=== PATIENT | female | born 1985 | race African-American/Black ===

== ENCOUNTER 2017-06-03 10:30 | Inpatient (IN) | payer OTHER ==
[~2017-06-03] VITALS: Ht 160 cm; Wt 145.1 kg
[2017-07-09] VITALS (18 sets, daily range): BP systolic 108–155; BP diastolic 60–95
[2017-07-09] MEDS ORDERED: LR 1000ml 1,000 ML IVLG SCH (06:10)
[2017-07-09] MEDS ORDERED: DiphenhydrAMINE 50mg/ml Inj IVP PRN (06:15)
[2017-07-09] MEDS ORDERED: fentaNYL 100 mcg/2 mL IV PRN (06:15)
[2017-07-09] MEDS ORDERED: Ketorolac 30mg Inj IV PRN ×2 (06:15→19:00)
[2017-07-09] MEDS ORDERED: oxyCODONE HCL/Acetaminophen 5/325mg ORAL PRN (06:15)
[2017-07-09] MEDS ORDERED: LORazepam Inj 2mg/ml 1ml IV PRN (06:15)
[2017-07-09] MEDS ORDERED: Midazolam 2mg/2ml Inj IVP PRN (06:15)
[2017-07-09] MEDS ORDERED: Norco 5mg/325mg tab ORAL PRN ×2 (06:15→07:15)
[2017-07-09] MEDS ORDERED: Labetalol 5mg/ml 20ml vial IV PRN (06:15)
[2017-07-09] MEDS ORDERED: HYDROcodone/Acetamin 7.5/325 tab ORAL PRN ×3 (06:15→07:15)
[2017-07-09] MEDS ORDERED: Atropine Inj 1mg/10ml Syr IV PRN (06:15)
[2017-07-09] MEDS ORDERED: Ketorolac 60mg Inj IV PRN (06:15)
[2017-07-09] MEDS ORDERED: Acetaminophen (Non formulary) 100 ML IV ONE (06:15)
[2017-07-09 06:16] LABS: APPEARANCE,URINE CLEAR; BILIRUBIN, URINE NEGATIVE (NEGATIVE); COLOR,URINE YELLOW; GLUCOSE, URINE (UA) NEGATIVE (NEGATIVE); KETONES,URINE NEGATIVE (NEGATIVE); LEUKOCYTE ESTERASE ,URINE NEGATIVE (NEGATIVE); NITRITE,URINE NEGATIVE (NEGATIVE); PH,URINE 6 (4.5-8.0); PROTEIN,URINE NEGATIVE (NEGATIVE); UROBILINOGEN,URINE NORMAL MG/DL (0.0-1.0)
--- NOTE | 2017-07-09 06:18 | Anethesia Preoperative Eval ---
Anesthesia Pre-op PMH/ROS General Date of Evaluation: Jul 09, 2017 Time of Evaluation: 07:01 Anesthesiologist: Aparna ASA Score: ASA 3 Mallampati Score Class I : Soft palate, uvula, fauces, pillars visible Class II: Soft palate, uvula, fauces visible Class III: Soft palate, base of uvula visible Class IV: Only hard plate visible Mallampati Classification: Class III Surgeon: Mando Diagnosis: Back Pain Surgical Procedure: L L4-5, L5-S1, Microdiscetomy, Foraminectomy, Hemilaminotomy Anesthesia History: none Family History: no anesthesia problems Allergies: Coded Allergies: No Known Allergies (Unverified , 07/09/17) Medications: see eMAR Past Medical History Pulmonary: Reports: asthma Gastrointestinal/Genitourinary: Reports: GERD Neurologic/Psychiatric: Reports: depression/anxiety Other: obesity - Morbid BMI 59 PSxH Narrative: Hysteroscopy, TL Anesthesia Pre-op Phys. Exam Physician Exam Vital Signs Date Time Temp Pulse Resp B/P (MAP) Pulse Ox O2 Delivery O2 Flow Rate FiO2 07/09/17 06:35 98.0 88 18 114/74 98 Room Air Constitutional: NAD Neurologic: CN 2-12 intact Cardiovascular: RRR Respiratory: CTA Gastrointestinal: S/NT/ND Airway Exam Mallampati Score: Class III MO: full ROM: limited Teeth: intact Anesthesia Pre-op A/P Risk Assessment & Plan Assessment: ASA 3 Plan: GA, BIS, GlideScope Status Change Before Surgery: No Pre-Antibiotics Dru Grams Ancef IV Given Within 1 Hr of Incision: Yes Time Given: 07:16 Alton Braun MD Jul 09, 2017 06:18
[2017-07-09] MEDS ORDERED: Thrombin 5000 units TOPIC ONE ×2 (06:22→07:58)
[2017-07-09] MEDS ORDERED: Vancomycin 1gm inj IVPB ONE ×2 (06:22→09:21)
[2017-07-09] MEDS ORDERED: Bacitracin 50000 Units Vial ONE (06:23)
[2017-07-09] MEDS ORDERED: Ropivacaine 5mg/ml Vial 30ml INJ ONE (06:23)
[2017-07-09] MEDS ORDERED: ceFAZolin sod 2 GM in D5W 110 ML IVPB ONE (07:00)
[2017-07-09] MEDS ORDERED: Zemuron 50mg/5ml Inj IV ONE (07:00)
[2017-07-09] MEDS ORDERED: NS Irrig 1000ml ONE (07:00)
[2017-07-09] MEDS ORDERED: Lidocaine 1% MPF 10mg/ml 5ml ONE (07:00)
[2017-07-09] MEDS ORDERED: Glycopyrrolate 0.2mg/ml 1ml Vial ONE (07:00)
[2017-07-09] MEDS ORDERED: Dexamethasone 4mg/ml vial ONE (07:00)
[2017-07-09] MEDS ORDERED: LR 1000ml ONE (07:00)
[2017-07-09] MEDS ORDERED: Propofol 1,000mg/ 100ml btl IV ONE (07:00)
[2017-07-09] MEDS ORDERED: Neostigmine 1mg/ml 10ml Inj ONE (07:00)
[2017-07-09] MEDS ORDERED: fentaNYL 100 mcg/2 mL IV ONE (07:00)
[2017-07-09] MEDS ORDERED: Sterile Water Irrig 1000ml IRRIG ONE (07:00)
[2017-07-09 07:02] LABS: EOSINOPHILS % (AUTO) 1.7 % (0.0-3.0); HEMATOCRIT 41.1 % (37.0-47.0); MEAN CORPUSCULAR VOLUME 82 FL (80-99); MONOCYTES % (AUTO) 6.5 % (1.0-10.0); NEUTROPHILS % (AUTO) 54.8 % (45.0-75.0); PLATELET COUNT 447 K/UL (150-450); RED BLOOD COUNT 4.99 M/UL (4.20-5.40); RED CELL DISTRIBUTION WIDTH 13.5 % (11.6-14.8); WHITE BLOOD COUNT 14.5 K/UL (4.8-10.8)
[2017-07-09] MEDS ORDERED: LIORESAL20 MG ORAL (07:09)
[2017-07-09] MEDS ORDERED: NORCO 5-325 TA1 EAC1 ORAL (07:09)
--- NOTE | 2017-07-09 07:10 | Pre-Procedure Note/Attestation ---
Pre-Procedure Note/Attestation Complete Prior to Procedure Planned Procedure: left Procedure Narrative: Left sided L45 and L5s1 microdiscectomy hemilaminotomy foraminotomy Indications for Procedure Pre-Operative Diagnosis: L45 and 5S1 herniation Attestation I attest that I discussed the nature of the procedure; its benefits; risks and complications; and alternatives (and the risks and benefits of such alternatives ), prior to the procedure, with the patient (or the patient's legal sales representative health insurance). I attest that, if there was a reasonable possibility of needing a blood transfusion, the patient (or the patient's legal sales representative health insurance) was given the [facility] standardized written summary, pursuant to the Dayne Sanya Blood Safety Act ([place] Health and Safety Code # 1645, as amended). I attest that I re-evaluated the patient just prior to the surgery and that there has been no change in the patient's H&P, except as documented below: SHELTON WRIGHT Jul 09, 2017 07:10
--- NOTE | 2017-07-09 07:11 | Brief Operative Note ---
Immediate Post Operative Note Operative Note Chief Complaint: left leg and back pain Pre-op Diagnosis: L45 and 5S1 herniation Procedure: Left sided L45 and L5s1 microdiscectomy hemilaminotomy foraminotomy Post-op Diagnosis: same as pre-op Findings: consistent w/pre-op dx studies Surgeon: Mando Filtration Plant Operator: Claudia Anesthesiologist: hoang Anesthesia: general Specimen: none Complications: none Condition: stable Estimated Blood Loss: minimal Drains: none Implant(s) used?: SHELTON Chan Jul 09, 2017 07:11
[2017-07-09] MEDS ORDERED: Naloxone 0.4mg/ml Inj IVP PRN (07:15)
[2017-07-09] MEDS ORDERED: HYDROmorphone 1mg/ml Carpuject SUBQ PRN (07:15)
[2017-07-09] MEDS ORDERED: Milk of Magnesia 30ml Ud ORAL PRN (07:15)
[2017-07-09] MEDS ORDERED: Chloraseptic Spray 20mL Bottle ORAL PRN (07:15)
[2017-07-09] MEDS ORDERED: HYDROmorphone 1mg/ml Carpuject IVP PRN (07:15)
--- NOTE | 2017-07-09 08:06 | Immediate Post-Op Evaluation ---
Immediate Post-Op Evalulation Immediate Post-Op Evalulation Procedure: L L4-5, L5-S1, Microdiscetomy, Foraminectomy, Hemilaminotomy Date of Evaluation: Jul 09, 2017 Time of Evaluation: 10:10 IV Fluids: 1300 LR Blood Products: 0 Estimated Blood Loss: 25 Urinary Output: 0 Blood Pressure Systolic: 154 Blood Pressure Diastolic: 95 Pulse Rate: 96 Respiratory Rate: 16 O2 Sat by Pulse Oximetry: 100 Temperature (Fahrenheit): 100.5 Pain Score (1-10): 3 Nausea: No Vomiting: No Complications 0 Patient Status: awake, reacts, patent, extubated, none Hydration Status: adequate Dru Grams Ancef IV Given Within 1 Hr of Incision: Yes Time Given: 07:16 Alton Braun MD Jul 09, 2017 08:06
[2017-07-09] MEDS: Hydromorphone 0.5mg/0.5ml inj IVP PRN ×3 (10:40→11:29)
--- NOTE | 2017-07-09 12:20 | Diagnostic Imaging Report ---
Indication: Low back pain, intraoperative, left lower extremity pain Technique: Intraoperative images Comparison: none Findings: Intraoperative images demonstrate surgical tool projected posterior to the L5 vertebral body, subsequent surgical tools projected at what is presumably L4-5 and L5-S1 Impression: Intraoperative imaging, as described
--- NOTE | 2017-07-09 12:33 | Consultation ---
History of Present Illness General Date patient seen: Jul 09, 2017 Time patient seen: 12:00 Chief Complaint: intractable lower back and leg pain w/ radiculopathy Referring physician: Dr. Gilmore Reason for Consultation: med mgmt Present Illness HPI 32y/o female with L4-5 and L5-S1 disc herniation who presents s/p Left sided L45 and L5s1 microdiscectomy hemilaminotomy foraminotomy earlier today. No periop or postop complications. Postop pain appears well controlled. Denies f/c , n/v, d/c, chest pain, SOB Allergies: Coded Allergies: No Known Allergies (Unverified , 07/09/17) Medication History Scheduled Baclofen (Baclofen), 20 MG ORAL THREE TIMES A DAY, (Reported) Scheduled PRN Hydrocodone Bit/Acetaminophen 5-325* ([place] 5-325 Tablet*), 1 TAB ORAL Q4H PRN for For Pain, (Reported) Patient History History Provided By: Patient, Medical Record, PMD Healthcare decision maker campos ross - sister Resuscitation status Full Code Advanced Directive on File Past Medical/Surgical History Past Medical/Surgical History: (1) HNP (herniated nucleus pulposus), lumbar Family History Family History: (1) No significant family history Social History Social History: (1) No significant social history Review of Systems Constitutional: Reports: no symptoms Eye: Reports: no symptoms ENT: Reports: no symptoms Respiratory: Reports: no symptoms Cardiovascular: Reports: no symptoms Gastrointestinal: Reports: no symptoms Genitourinary: Reports: no symptoms Musculoskeletal: Reports: back pain, joint pain Skin: Reports: no symptoms Psychiatric: Reports: no symptoms Neurological: Reports: no symptoms Endocrine: Reports: no symptoms Hematologic/Lymphatic: Reports: no symptoms Physical Exam Physical Exam Narrative General: alert, cooperative, no distress, appears stated age Head: normocephalic, without obvious abnormality, atraumatic Eyes: conjunctivae/corneas clear. PERRL, EOM's intact Throat: lips, mucosa, and tongue normal. MMM Neck: supple, symmetrical, trachea midline, and no JVD Lungs: clear to auscultation bilaterally Heart: regular rate and rhythm, S1, S2 normal, no murmur, click, rub or gallop Abdomen: soft, non-tender, non-distended, bowel sounds normal; no masses or organomegaly Extremities: extremities normal, atraumatic, no cyanosis or edema Pulses: 2+ and symmetric Skin: skin color, texture, turgor normal; dressing c/d/i Neurologic: grossly normal, no focal deficits Last 24 Hour Vital Signs Date Time Temp Pulse Resp B/P (MAP) Pulse Ox O2 Delivery O2 Flow Rate FiO2 07/09/17 11:45 98.4 67 18 129/75 99 Nasal Cannula 3.0 07/09/17 11:40 98.4 75 18 111/72 99 Nasal Cannula 3.0 07/09/17 11:35 64 18 108/63 99 Nasal Cannula 3.0 07/09/17 11:29 64 18 115/69 99 Nasal Cannula 3.0 07/09/17 11:19 100.5 07/09/17 11:19 100.5 07/09/17 11:18 72 18 142/83 99 Nasal Cannula 3.0 07/09/17 11:10 66 18 133/77 99 Nasal Cannula 3.0 07/09/17 11:03 66 18 133/77 99 Nasal Cannula 3.0 07/09/17 10:48 66 18 134/81 99 Nasal Cannula 3.0 07/09/17 10:40 67 18 136/81 99 Nasal Cannula 3.0 07/09/17 10:20 62 18 130/70 98 Nasal Cannula 3.0 07/09/17 10:05 72 18 140/79 98 Simple Mask 8.0 07/09/17 10:05 86 18 155/87 98 Simple Mask 8.0 07/09/17 10:02 96 16 100 07/09/17 09:59 100.5 93 18 154/95 98 Simple Mask 8.0 07/09/17 06:35 98.0 88 18 114/74 98 Room Air Intake and Output 07/08/17 07/09/17 19:00 07:00 # Voids 1 Laboratory Tests Test 07/09/17 05:45 07/09/17 06:20 Urine Color Yellow Urine Appearance Clear Urine pH 6 (4.5-8.0) Urine Specific [place] 1.020 (1.005-1.035) Urine Protein Negative (NEGATIVE) Urine Glucose (UA) Negative (NEGATIVE) Urine Ketones Negative (NEGATIVE) Urine Occult Blood 2+ (NEGATIVE) H Urine Nitrite Negative (NEGATIVE) Urine Bilirubin Negative (NEGATIVE) Urine Urobilinogen Normal MG/DL (0.0-1.0) Urine Leukocyte Esterase Negative (NEGATIVE) Urine RBC 2-4 /HPF (0 - 2) H Urine WBC 0-2 /HPF (0 - 2) Urine Squamous Epithelial Cells Few /LPF (NONE/OCC) Urine Bacteria None /HPF (NONE) Urine HCG, Qualitative Negative White Blood Count 14.5 K/UL (4.8-10.8) H Red Blood Count 4.99 M/UL (4.20-5.40) Hemoglobin 13.0 G/DL (12.0-16.0) Hematocrit 41.1 % (37.0-47.0) Mean Corpuscular Volume 82 FL (80-99) Mean Corpuscular Hemoglobin 26.1 PG (27.0-31.0) L Mean Corpuscular Hemoglobin Concent 31.7 G/DL (32.0-36.0) L Red Cell Distribution Width 13.5 % (11.6-14.8) Platelet Count 447 K/UL (150-450) Mean Platelet Volume 6.3 FL (6.5-10.1) L Neutrophils (%) (Auto) 54.8 % (45.0-75.0) Lymphocytes (%) (Auto) 36.0 % (20.0-45.0) Monocytes (%) (Auto) 6.5 % (1.0-10.0) Eosinophils (%) (Auto) 1.7 % (0.0-3.0) Basophils (%) (Auto) 1.0 % (0.0-2.0) Height (Feet): 5 Height (Inches): 3.00 Weight (Pounds): 320 Medications Current Medications Medications (Trade) Dose Ordered Sig/Fabricio Route PRN Reason Start Time Stop Time Status Last Admin Dose Admin Acetaminophen (Tylenol) 650 mg Q4H PRN ORAL headache or temp>101 07/09/17 07:15 08/08/17 07:14 Acetaminophen/ Hydrocodone Bitart ([place] 5/325) 1 tab Q1H PRN ORAL Mild Pain (Pain Scale 1-3) 07/09/17 06:15 07/09/17 13:00 Acetaminophen/ Hydrocodone Bitart ([place] 5/325) 1 tab Q3H PRN ORAL pain score 1-3 07/09/17 07:15 07/16/17 07:14 UNV Acetaminophen/ Hydrocodone Bitart ([place] 7.5/325) 1 tab Q1H PRN ORAL Moderate Pain (Pain Scale 4-6) 07/09/17 06:15 07/09/17 13:00 Acetaminophen/ Hydrocodone Bitart ([place] 7.5/325) 1 tab Q3H PRN ORAL pain score 4-6 07/09/17 07:15 07/16/17 07:14 UNV Acetaminophen/ Hydrocodone Bitart ([place] 7.5/325) 2 tab Q3H PRN ORAL pain scale 7-10 07/09/17 07:15 07/16/17 07:14 UNV Al Hydroxide/Mg Hydroxide (Mylanta) 15 ml Q1H PRN ORAL gi upset 07/09/17 06:15 07/09/17 13:00 Atropine Sulfate (Atropine) 0.5 mg Q5M PRN IV HR <40 07/09/17 06:15 07/09/17 13:00 Carisoprodol (Soma) 350 mg TIDPRN PRN ORAL SPASM 07/09/17 07:15 08/08/17 07:14 Cefazolin Sodium 1 gm/Dextrose 55 ml @ 110 mls/hr EVERY 8 HOURS IV 07/09/17 14:00 07/10/17 06:29 UNV Cetylpyridinium Chloride (Cepacol) 1 lozg EVERY 2 HOURS PRN SHARIFA To Patient Comfort 07/09/17 07:15 08/08/17 07:14 UNV Dexamethasone Sodium Phosphate (Decadron 4mg/ml vial) 4 mg Q6HR IVP 07/09/17 12:00 07/10/17 06:01 UNV Diphenhydramine HCl (Benadryl) 25 mg Q15M PRN IVP Itching 07/09/17 06:15 07/09/17 13:00 Docusate Sodium (Colace) 100 mg TWICE A DAY ORAL 07/09/17 09:00 08/08/17 08:59 UNV Fentanyl Citrate (Sublimaze 100 mcg/2 mL) 25 mcg Q10M PRN IV Moderate Pain (Pain Scale 4-6) 07/09/17 06:15 07/09/17 13:00 Hydralazine HCl (Apresoline) 5 mg Q30M PRN IV SBP>160 / DBP>90 07/09/17 06:15 07/09/17 13:00 Hydromorphone HCl (Dilaudid) 0.5 mg Q15M PRN IVP Severe Pain (Pain Scale 7-10) 07/09/17 06:15 07/09/17 13:00 07/09/17 11:29 Hydromorphone HCl (Dilaudid) 1 mg Q2H PRN IVP Breakthrough Pain 07/09/17 07:15 07/16/17 07:14 UNV Hydromorphone HCl (Dilaudid) 1 mg Q4H PRN SUBQ Mild Pain (Pain Scale 1-3) 07/09/17 07:15 07/16/17 07:14 UNV Hydromorphone HCl (Dilaudid) 2 mg Q3H PRN SUBQ Severe Pain (Pain Scale 7-10) 07/09/17 07:15 07/16/17 07:14 UNV Hydromorphone HCl (Dilaudid) 2 mg Q4H PRN SUBQ Moderate Pain (Pain Scale 4-6) 07/09/17 07:15 07/16/17 07:14 UNV Labetalol HCl (Normodyne) 5 mg Q10M PRN IV SBP>160 / DBP>90 07/09/17 06:15 07/09/17 13:00 Lorazepam (Ativan 2mg/ml 1ml) 1 mg Q15M PRN IV For Anxiety 07/09/17 06:15 07/09/17 13:00 Magnesium Hydroxide (Mom) 30 ml QIDPRN PRN ORAL Constipation 07/09/17 07:15 08/08/17 07:14 UNV Midazolam HCl (Versed 2mg/2ml vial) 1 mg Q15M PRN IVP For Anxiety 07/09/17 06:15 07/09/17 13:00 Naloxone HCl (Narcan) 0.1 mg PRN PRN IVP RR<12/min, pt unarousable 07/09/17 07:15 08/08/17 07:14 UNV Ondansetron HCl (Zofran) 4 mg Q6H PRN IVP Nausea & Vomiting 07/09/17 07:15 08/08/17 07:14 UNV Oxycodone/ Acetaminophen (Percocet 5-325) 1 tab Q1H PRN ORAL Severe Pain (Pain Scale 7-10) 07/09/17 06:15 07/09/17 13:00 Phenol/Menthol (Chloraseptic) 1 spray Q3H PRN ORAL To Patient Comfort 07/09/17 07:15 08/08/17 07:14 UNV Prochlorperazine (Compazine) 10 mg Q6H PRN IVP Nausea & Vomiting 07/09/17 07:15 08/08/17 07:14 UNV Sodium Chloride 1,000 ml @ 100 mls/hr Q10H IV 07/09/17 13:30 08/08/17 13:29 Temazepam (Restoril) 15 mg HSPRN PRN ORAL Insomnia 07/09/17 07:15 07/16/17 07:14 Assessment/Plan Problem List: (1) HNP (herniated nucleus pulposus), lumbar ICD Codes: M51.26 - Other intervertebral disc displacement, lumbar region SNOMED: 739672051 (2) Lumbar radiculopathy ICD Codes: M54.16 - Radiculopathy, lumbar region SNOMED: 189503714 Status: stable Assessment/Plan Appreciate surgery rec's s/p Left sided L45 and L5s1 microdiscectomy hemilaminotomy foraminotomy on Post operative recommendations include: - encourage mobilization/ambulation - encourage incentive spirometry to optimize pulmonary hygiene - DVT/GI prophylaxis as appropriate - PT/OT - pain control, supportive care, bowel regimen - DC planning D/w pt/family, RN, SW/CM, surgery regarding mgmt and dispo Javier Terrell M.D. Jul 09, 2017 12:33
[2017-07-09] MEDS: Dexamethasone 4mg/ml vial IVP SCH ×2 (13:38→20:32)
[2017-07-09] MEDS: NS w/KCl 20mEq 1,000 ML IV SCH ×2 (15:36→23:30)
[2017-07-09] MEDS: ceFAZolin sod 1 GM in D5W 55 ML IV SCH ×2 (15:36→23:05)
[2017-07-09] MEDS: Docusate 100mg cap ORAL SCH (18:00)
[2017-07-09] MEDS ORDERED: Ketorolac 30mg Inj IV ONE (19:15)
[2017-07-10] VITALS: BP 119/58
[2017-07-10] MEDS: Dexamethasone 4mg/ml vial IVP SCH ×2 (00:38→06:19)
[2017-07-10 04:00] VITALS: BP 132/60
[2017-07-10] MEDS: NS w/KCl 20mEq 1,000 ML IV SCH ×2 (06:04→19:30)
[2017-07-10] MEDS: ceFAZolin sod 1 GM in D5W 55 ML IV SCH (06:19)
[2017-07-10 08:00] VITALS: BP 124/56
[2017-07-10] MEDS: Docusate 100mg cap ORAL SCH ×2 (08:51→18:25)
--- NOTE | 2017-07-10 09:03 | 48 Hour Post Anesthesia Eval ---
Post Anesthesia Evaluation Procedure: L L4-5, L5-S1, Microdiscetomy, Foraminectomy, Hemilaminotomy Date of Evaluation: Jul 10, 2017 Time of Evaluation: 06:55 Blood Pressure Systolic: 132 0: 60 Pulse Rate: 67 Respiratory Rate: 19 Temperature (Fahrenheit): 98.3 O2 Sat by Pulse Oximetry: 95 Airway: patent Nausea: No Vomiting: No Pain Intensity: 2 Hydration Status: adequate Cardiopulmonary Status: at baseline Mental Status/LOC: patient returned to baseline Post-Anesthesia Complications: 0 Follow-up care needed: N/A - further care as per primary team NIVIA SANCHEZ M.D. Jul 10, 2017 09:03
[2017-07-10 12:00] VITALS: BP 134/71
[2017-07-10 16:00] VITALS: BP 134/61
[2017-07-10 20:15] VITALS: BP 128/65
[2017-07-11 00:58] VITALS: BP 131/73
--- NOTE | 2017-07-11 01:45 | Operative Note - Dictated ---
DATE OF OPERATION: 07/09/2017 SURGEON: Beny Gilmore MD, Orthopaedic Spine Surgeon WET MIX OPERATOR SURGEON: SHON Coles ANESTHESIA: General endotracheal anesthesia. PREOPERATIVE DIAGNOSES: 1. Intractable back pain. 2. Intractable leg pain. 3. Worsening radiculopathy. 4. Weakness. 5. Herniated nucleus pulposus, L4-L5 and L5-S1. 6. Neural foraminal stenosis, L4-L5 and L5-S1. POSTOPERATIVE DIAGNOSES: 1. Intractable back pain. 2. Intractable leg pain. 3. Worsening radiculopathy. 4. Weakness. 5. Herniated nucleus pulposus, L4-L5 and L5-S1. 6. Neural foraminal stenosis, L4-L5 and L5-S1. PROCEDURES PERFORMED: 1. Left-sided L4-L5 and L5-S1 microdiscectomy. 2. L4-L5 and L5-S1 hemilaminotomy, foraminotomy and medial facetectomy. 3. L4-L5 and L5-S1 neural foraminotomy through a transpedicular intraforaminal approach. 4. Use of intraoperative microscope. 5. Supervision and interpretation of intraoperative fluoroscopy. 6. Supervision and interpretation of somatosensory-evoked potential and free running EMG monitoring. 7. Modifier 22, obesity, increased difficulty with regard to the exposure and depth. EBL: Less than 100 mL. COMPLICATIONS: None. INDICATIONS FOR THE PROCEDURE: Patty presents for intractable back pain and radiculopathy. The patient tried and failed a prolonged course of conservative management, including but not limited to chiropractic therapy, physical therapy, nonsteroidal anti-inflammatory drugs, medication, ice packs as well as epidural injection. Despite these therapies, the patient still developed recalcitrant pain and elected for definitive management in the form of Left-sided L4-L5 and L5-S1 microdiscectomy; L4-L5 and L5-S1 hemilaminotomy, foraminotomy, and medial facetectomy; L4-L5 and L5-S1 neural foraminotomy. We had a long discussion with him regarding definitive surgical treatment options. The patient's MRI demonstrated herniated nucleus pulposus, L4-L5 and L5-S1, and neural foraminal stenosis, L4-L5 and L5-S1 and as a result, I felt he would benefit from the discectomy as well as neural foraminotomy at this level. We had a long discussion with the patient regarding the risks, alternatives, and benefits of surgery. Our description of the risks included a discussion in person as well as a signed consent which detailed all pertinent risks and the procedure itself. Briefly, our discussion included but was not limited to infection, bleeding, pseudarthrosis, spinal cord injury, neurovascular injury, dural tear, CSF leak, neuropathy, paralysis, permanent weakness/drop foot, paresthesias blindness, palsy and weakness. The patient understood there may be a need for revision surgery or additional procedures. Approach related complications including dysphonia, dysphagia, blindness, permanent vocal cord and neural injury, hematoma, swallowing and breathing difficulty. Medical complications including liver, kidney, shock, and cardiopulmonary failure. Anesthesia complications including , swelling. Damage to the musculature, larynx (voice injury or loss),esophagus (throat), trachea, blood vessels and muscles (muscular sprain) and lungs (pneumothorax) during this surgical procedure. Injury to deeper structures may be temporary or permanent. The patient understood these and elected to proceed. A written and verbal consent was given. We discussed the pros and cons of all the alternatives. We discussed the uncertainties associated with the decision. Afterwards I assessed the patients understanding and explored their preferences. All questions were answered and no guarantees were given. Medical clearance was obtained prior to surgery. OPERATIVE FINDINGS: A broad-based disc herniation at L4-L5 and L5-S1, which encroached on the thecal sac and neural foraminal elements therein. This disc was acute in nature and not calcified. It was mobile and free floating and resected easily. There was also neural foraminal stenosis at L4-L5 and L5-S1. DESCRIPTION OF PROCEDURE: Under the benefit of general endotracheal anesthesia and with the assistance of the entire operative team, the patient was moved from the [facility] onto the operative table in the prone position on a Julian frame. The head was secured and positioned appropriately. Bilateral arms were secured with Gel pads and foam and all bony prominences were padded. The bilateral lower extremity SCD and BRENDA hose were placed for DVT prophylaxis. A surgical timeout was called which corroborated our planned procedure. Preoperative Antibiotics were administered within 30 minutes of the incision for prophylaxis. Decadron was given for preoperative steroids. Using lateral radiography, the operative levels were delineated. An incision was marked based on our interpretation of lateral radiography and afterwards the body was prepped and draped in the usual sterile manner. The family was notified that we were ready to commence surgery and were called in the waiting room hourly for updates. An incision was based on our lateral fluoroscopic image to center the incision at the L5-S1 interspace. The wound was prepped and draped in the usual sterile fashion. Using a scalpel a midline incision was taken down through the skin and subcutaneous tissues until the overlying hemilamina of L4-L5 and L5-S1 were visualized. Next, using meticulous hemostasis, hemilaminotomies were dissected and retractors were placed. Using a Tap[employer]ense dental we confirmed placement at the L4-L5 and L5-S1 interspace. We next turned our attention to our decompression. A standard hemilaminotomy foraminotomy medial facetectomy was performed at each level in standard fashion using a Midas-Matt type AM8 drill bit, straight and angled curettage, and [place] 4 rongeurs until the lateral thecal sac margin and traversing nerve root was visualized. All remainders of the ligamentum flavum and lateral bony margins were resected in total with angled curettage and [place] 4 rongeurs until the lateral thecal sac margin and traversing nerve root was visualized and decompressed. We next turned our attention toward our L4-L5 and L5-S1 microdiscectomy on the left side. A [place] 4 was used to gently mobilize the thecal sac medially and this was held retracted with a bayonetted nerve root retractor. It was at this point that we noted a large broad-based disc protrusion with encroachment dorsally on the thecal sac neural foraminal contents. A bayonet and nerve root retractor was then placed carefully to retract the thecal sac and a discectomy was performed using a combination of a long handled 15 blade scalpel, downgoing and straight pituitaries and downgoing curettage. Afterward the disc space was irrigated twice with 20 mL of antibiotic-impregnated saline. All loose and free-floating disc fragments were carefully resected with a narrow pituitary. Having been satisfied with our decompression after our discectomy of all neural elements we next turned our attention to our neural foraminoplasty/foraminotomy. This was performed with kerrison rongeurs and pituitaries re-creation of the neural foraminal arch at L4-L5 and L5-S1. Afterwards hemostasis was obtained with 60 mL of antibiotic-impregnated saline followed by FloSeal and Gelfoam. After sponge and needle count were found to be correct, next we turned our attention to closure. Closure consisted of 1-0 Vicryl in standard interrupted fashion. Zosyn was placed deep to the fascia and superficial to the fascia for Antibiotic prophylaxis. Skin closure was performed with 2-0 Vicryl in interrupted fashion followed by a running Monocryl for the skin. Final dressings consisted of Dermabond for the superficial skin, Telfa and Tegaderm. The patient tolerated the procedure well. The patient was extubated after the conclusion of surgery without incident. We discussed the findings of the surgery with the family upon completion of the case. At this point the patient will be transferred to the spine floor for further observation. Beny Gilmore M.D. DR: KIA JOB#: [id number] CC: LARY
[2017-07-11 04:46] VITALS: BP 121/64
[2017-07-11] MEDS: NS w/KCl 20mEq 1,000 ML IV SCH (05:37)
[2017-07-11 08:00] VITALS: BP 135/76
[2017-07-11] MEDS: Docusate 100mg cap ORAL SCH (10:22)
--- NOTE | 2017-07-11 10:45 | Procedure Note ---
SURGEON: Beny Gilmore M.D. DATE OF ADMISSION: 07/09/2017 DATE OF DISCHARGE: 07/11/2017 PROCEDURE PERFORMED DURING ADMISSION: 1. Microdiscectomy, left-sided L4-L5, L5-S1. 2. Hemilaminotomy. 3. Foraminotomy. REASON FOR ADMISSION: Herniations of L4-L5, L5-S1. HOSPITAL COURSE/TREATMENT RENDERED: microdiscectomy 45,5S1 DISCHARGE PHYSICAL EXAMINATION: 1. The patient was ambulating with and without the assistance of physical therapy. 2. Prior to discharge home, incision was clean and dry with minimal swelling. 3. Follows commands. 4. Alert and oriented. 5. Sawyer discontinued, voiding. 6. Incentive spirometer at bedside. 7. IVF Hep-Locked. MOTOR: Demonstrates expected postoperative bulk and tone. Moves biceps, triceps, and deltoid musculature on command. Moves hip flexors, quadriceps, tibialis anterior, EHL, gastrocsoleus musculature on command as well. TREATMENT RENDERED: 1. Daily nursing care. 2. Physical therapy. 3. Occupational therapy. 4. Intravenous medications. 5. Oral medications. 6. Daily postoperative examinations by Spine surgery team. CONDITION OF PATIENT ON DISCHARGE: The condition on discharge is stable for discharge to home. DISCHARGE INSTRUCTIONS: Our specific instructions relating to physical activity, medications, diet, and follow-up care are detailed in our standard operative folder and were given to this patient prior to surgery. We will however summarize these briefly as stated below. Regarding physical activity, we would like the patient to limit their flexion, extension, and rotation. We also require a limitation on their bending, lifting, and twisting. All medication has been called in prior to surgery to their pharmacy of choice. They can resume their regular diet once tolerated. We would like them to shower and limit soaking the wound in a tub/Jacuzzi/the ocean for a period of one month or until the incision is completely healed. We will have them follow up in our office in three weeks' time for their regularly scheduled appointment. They understand to call our office tomorrow to schedule the time for their three-week followup appointment. The patient will notify us should they experience any increase in the severity of pain/redness/swelling/drainage from their incision. Beny Gilmore M.D. DR: Roni JOB#: [id number] CC: LARY
[2017-07-11 12:00] VITALS: BP 140/88
[2017-07-11] MEDS ORDERED: Tubing IV Secondary IV ONE (12:29)
--- NOTE | 2017-07-13 13:40 | Discharge Summary ---
Discharge Summary Hospital Course Date of Admission Jul 09, 2017 at 05:32 Date of Discharge Jul 11, 2017 at 12:30 Admitting Diagnosis Herniations of L4-L5, L5-S1. Reason for Hospitalization: elective surgery HPI Patty Dalton is a 32 year old female who was admitted on Jul 09, 2017 at 05: 32 for intractable leg and back and worsening radiculopathy due to herniations of L4-L5, L5-S1. Patient was admitted for elective surgery Consultations Javier Terrell M.D.-IM Procedures s/p 07/09/[address] Gilmore 1. Left-sided L4-L5 and L5-S1 microdiscectomy. 2. L4-L5 and L5-S1 hemilaminotomy, foraminotomy and medial facetectomy. 3. L4-L5 and L5-S1 neural foraminotomy through a transpedicular intraforaminal approach. 4. Use of intraoperative microscope. 5. Supervision and interpretation of intraoperative fluoroscopy. 6. Supervision and interpretation of somatosensory-evoked potential and free running EMG monitoring. 7. Modifier 22, obesity, increased difficulty with regard to the exposure and depth. Hospital Course s/p surgery course of recovery uneventful pain management fall precautions, PT/OT eval and treatment, ambulated initially gentle IVF, dc when tolerated diet dressing intact diet started and slowly advanced as tolerated, a/emetic prn neurovascular status checked frequently IS while in the bed GI prophylaxis Sawyer dc after surgery, voided w/out difficulties bowel regimen instituted stable for dc: neurovascular intact pain controlled tolerated diet ambulated voided freely dressings clean, intact, dry detailed dc instructions provided by surgeon fup with surgeon as advised FINAL DIAGNOSIS 1. Intractable back pain. 2. Intractable leg pain. 3. Worsening radiculopathy. 4. Weakness. 5. Herniated nucleus pulposus, L4-L5 and L5-S1. 6. Neural foraminal stenosis, L4-L5 and L5-S1. 7. s/p Microdiscectomy, left-sided L4-L5, L5-S1; Hemilaminotomy, Foraminotomy.Cervical Herniated Disc and elective surgery Discharge Medications Continued Medications: Baclofen (Baclofen) 20 Mg Tablet 20 MG ORAL THREE TIMES A DAY, TAB Hydrocodone Bit/Acetaminophen 5-325* (Enloe 5-325 Tablet*) 1 Each Tablet 1 TAB ORAL Q4H PRN for For Pain, TAB Discharge Condition Upon Discharge: stable Discharge Disposition Patient was discharged to Home (01) Discharge Diagnoses: Discharge Instructions Discharge Instructions Special Instructions I have been assigned to complete a D/C Summary on this account. I was not involved in the patient management Terese Lea NP (Vanchtein) Jul 13, 2017 13:40
== END 2017-07-11 12:30 | disposition home or self-care (01) | DRG 519 ==
LOC: SDSOVERFLO 07-09 05:32 → 3E 07-09 11:52
DX: M51.16 Intervertebral disc disorders with radiculopathy, lumbar region (principal); Z68.43 Body mass index [BMI] 50.0-59.9, adult; I10 Essential (primary) hypertension; E66.9 Obesity, unspecified; M48.061 Spinal stenosis, lumbar region without neurogenic claudication; M51.17 Intervertebral disc disorders with radiculopathy, lumbosacral region; M48.07 Spinal stenosis, lumbosacral region; F17.200 Nicotine dependence, unspecified, uncomplicated
CPT/HCPCS: 36415; 72020; 76000; 81001; 81025; 85025; 86850; 86870; 86900; 86901; 87081; 94003; 94150; J2405; J2710

== ENCOUNTER 2017-08-21 09:06 | Inpatient (IN) | payer OTHER ==
[~2017-08-21] VITALS: Ht 160 cm; Wt 145.6 kg
[2017-08-21] VITALS (13 sets, daily range): BP systolic 133–163; BP diastolic 64–104
--- NOTE | 2017-08-21 08:27 | Anethesia Preoperative Eval ---
Anesthesia Pre-op PMH/ROS General Date of Evaluation: Aug 21, 2017 Time of Evaluation: 10:30 Anesthesiologist: PORTER ASA Score: ASA 2 Mallampati Score Class I : Soft palate, uvula, fauces, pillars visible Class II: Soft palate, uvula, fauces visible Class III: Soft palate, base of uvula visible Class IV: Only hard plate visible Mallampati Classification: Class II Surgeon: Mando Diagnosis: Lumbar Radiculopathy Surgical Procedure: l4-5S1 Microdiskectomy Anesthesia History: none Family History: no anesthesia problems Allergies: Coded Allergies: GUAIFENESIN (Verified Allergy, Severe, Hives, 08/20/17) Medications: see eMAR Anesthesia Pre-op Phys. Exam Physician Exam Constitutional: NAD Neurologic: CN 2-12 intact Cardiovascular: RRR Respiratory: CTA Gastrointestinal: S/NT/ND Airway Exam Mallampati Score: Class II MO: full ROM: full Teeth: intact Anesthesia Pre-op A/P Risk Assessment & Plan Plan: GA Pre-Antibiotics Drug: Ancef Given Within 1 Hr of Incision: Yes Time Given: 10:30 Jose Raul Arzate M.D. Aug 21, 2017 08:27
[~2017-08-21 09:06] MED LIST: Acetaminophen (Non formulary) 100 ML IV ONE; Hydromorphone 0.5mg/0.5ml inj IVP PRN; Ketorolac 30mg Inj IV PRN; LIORESAL20 MG ORAL; LR 1000ml 1,000 ML IVLG SCH; Midazolam 2mg/2ml Inj IVP PRN; NORCO 5-325 TA1 EAC1 ORAL; Vancomycin 1 GM in D5W 275 ML IVPB ONE
[2017-08-21] MEDS ORDERED: Thrombin 5000 units TOPIC ONE (09:22)
[2017-08-21] MEDS ORDERED: Surgicel 4in x 8in TOPIC ONE (09:22)
[2017-08-21] MEDS ORDERED: Ropivacaine 5mg/ml Vial 30ml INJ ONE (09:22)
[2017-08-21] MEDS ORDERED: Vancomycin 1gm inj IVPB ONE ×2 (09:22→13:34)
[2017-08-21] MEDS ORDERED: Bacitracin 50000 Units Vial ONE ×2 (09:23→11:27)
--- NOTE | 2017-08-21 09:48 | History and Physical ---
History of Present Illness General Date patient seen: Aug 21, 2017 Time patient seen: 09:20 Reason for Hospitalization: surgery Present Illness HPI Preop H&P 32y/o female with h/o intractable lower back pain with lumbar radiculopathy 2/2 L4-5 and L5-S1 herniation s/p L45 and L5s1 microdiscectomy hemilaminotomy foraminotomy on 07/09/17 who presents w/ recurrent disc herniation and concern for wound infection. Pt states after last surgery on Jun 2017 she had worsening pain w/ swelling in lower back. She was admitted at OSH. She had fluid from back drained and was seen by ID. She had PICC placed and was on Vanco and Zosyn. Pt states Zosyn was changed to Meropenem by ID doctor recently. She had improvement in symptoms but still w/ lower back pain radiating down L leg. Pt denies h/o CAD/CT/HTN/DM2/CKD/COPD. Activity limited by back and leg pain. Allergies: Coded Allergies: GUAIFENESIN (Verified Allergy, Severe, Hives, 08/20/17) Medication History Scheduled Baclofen (Baclofen), 20 MG ORAL THREE TIMES A DAY, (Reported) Scheduled PRN Hydrocodone Bit/Acetaminophen 5-325* (Magnolia 5-325 Tablet*), 1 TAB ORAL Q4H PRN for For Pain, (Reported) Patient History History Provided By: Patient, Family Member, Medical Record, PMD Healthcare decision maker Resuscitation status Advanced Directive on File Past Medical/Surgical History Past Medical/Surgical History: (1) Obesity (2) Lumbar radiculopathy (3) HNP (herniated nucleus pulposus), lumbar Family History Family History: No significant family history Social History Social History: (1) smokes 2 cigarettes per day Review of Systems Eye: Reports: no symptoms ENT: Reports: no symptoms Respiratory: Reports: no symptoms Cardiovascular: Reports: no symptoms Gastrointestinal: Reports: no symptoms Musculoskeletal: Reports: back pain, muscle pain Skin: Reports: no symptoms Psychiatric: Reports: no symptoms Neurological: Reports: no symptoms Endocrine: Reports: no symptoms Hematologic/Lymphatic: Reports: no symptoms All Other Systems: negative except mentioned in HPI Physical Exam Physical Exam Narrative General: alert, cooperative, no distress, appears stated age, obese Head: normocephalic, without obvious abnormality, atraumatic Eyes: conjunctivae/corneas clear. PERRL, EOM's intact Throat: lips, mucosa, and tongue normal. MMM Neck: supple, symmetrical, trachea midline, and no JVD Lungs: clear to auscultation bilaterally Heart: regular rate and rhythm, S1, S2 normal, no murmur, click, rub or gallop Abdomen: soft, non-tender, non-distended, bowel sounds normal Extremities: extremities normal, atraumatic, no cyanosis or edema Pulses: 2+ and symmetric Skin: skin color, texture, turgor normal; no rashes or lesions Neurologic: grossly normal, no focal deficits Medications Current Medications Medications (Trade) Dose Ordered Sig/Fabricio Route PRN Reason Start Time Stop Time Status Last Admin Dose Admin Hydralazine HCl (Apresoline) 5 mg Q30M PRN IV SBP>160 OR___/DBP>90 OR___ 08/21/17 08:30 UNV Hydromorphone HCl (Dilaudid) 0.5 mg Q15M PRN IVP Severe Pain (Pain Scale 7-10) 08/21/17 08:30 UNV Ketorolac Tromethamine (Toradol 30mg) 30 mg Q1H PRN IV Severe Breakthru Pain (>7) 08/21/17 08:30 UNV Lactated Ringer's 1,000 ml @ 10 mls/hr Q24H IVLG 08/21/17 08:27 08/21/17 10:26 UNV Midazolam HCl (Versed 2mg/2ml vial) 1 mg Q15M PRN IVP For Anxiety 08/21/17 08:30 UNV Ondansetron HCl (Zofran) 4 mg Q1H PRN IVP Nausea & Vomiting 08/21/17 08:30 UNV Objective Narrative EKG NSR CXR normal Assessment/Plan Problem List: (1) HNP (herniated nucleus pulposus), lumbar ICD Codes: M51.26 - Other intervertebral disc displacement, lumbar region SNOMED: 272526682 (2) Lumbar radiculopathy ICD Codes: M54.16 - Radiculopathy, lumbar region SNOMED: 363432268 (3) Concern for wound infection, possible abscess (4) Obesity ICD Codes: E66.9 - Obesity, unspecified SNOMED: 574737114, 289213408 Status: stable Assessment/Plan If patient is required to have surgery, based on the patient's medical history, and other available ancillary data, the patient is a LOW/INTERMEDIATE risk for an INTERMEDIATE risk procedure. Per the most recent ACC/AHA guidelines, the patient does not need any further cardiopulmonary testing prior to the procedure and there do not appear to be any clear medical contraindications to proceeding with the proposed procedure. Javier Terrell M.D. Aug 21, 2017 09:48
[2017-08-21] MEDS ORDERED: MS CONTIN30 MG ORAL (10:19)
[2017-08-21] MEDS ORDERED: VANCOMYCIN1 GM/2502 IVPB (10:20)
--- NOTE | 2017-08-21 10:26 | Pre-Procedure Note/Attestation ---
Pre-Procedure Note/Attestation Complete Prior to Procedure Planned Procedure: not applicable Procedure Narrative: Lumbar L45 L5S1 revision microdiscectomy exploration of wound Indications for Procedure Pre-Operative Diagnosis: Radiculopathy and leg pain , superficial serous fluid Attestation I attest that I discussed the nature of the procedure; its benefits; risks and complications; and alternatives (and the risks and benefits of such alternatives ), prior to the procedure, with the patient (or the patient's legal financial service representative). I attest that, if there was a reasonable possibility of needing a blood transfusion, the patient (or the patient's legal financial service representative) was given the [facility] standardized written summary, pursuant to the Dayne Bratenahl Blood Safety Act ([place] Health and Safety Code # 1645, as amended). I attest that I re-evaluated the patient just prior to the surgery and that there has been no change in the patient's H&P, except as documented below: SHELTON WRIGHT Aug 21, 2017 10:26
--- NOTE | 2017-08-21 10:28 | Brief Operative Note ---
Immediate Post Operative Note Operative Note Chief Complaint: Leg pain and radicular symptoms Pre-op Diagnosis: Radiculopathy and leg pain , superficial serous fluid Procedure: Lumbar L45 L5S1 revision microdiscectomy exploration of wound, irrigation and debridement Post-op Diagnosis: same as pre-op Findings: consistent w/pre-op dx studies Surgeon: Mando Crusher Feeder: Claudia Anesthesia: general Specimen: none Complications: none Condition: stable Estimated Blood Loss: minimal Implant(s) used?: SHELTON Chan Aug 21, 2017 10:28
[2017-08-21] MEDS ORDERED: Norco 5mg/325mg tab ORAL PRN (10:30)
[2017-08-21] MEDS ORDERED: Morphine Sulfate 2mg/ml Inj SUBQ PRN (10:30)
[2017-08-21] MEDS ORDERED: Naloxone 0.4mg/ml Inj IVP PRN (10:30)
[2017-08-21] MEDS ORDERED: Morphine Sulfate 4mg/ml Inj SUBQ PRN ×2 (10:30)
[2017-08-21] MEDS ORDERED: Chloraseptic Spray 20mL Bottle ORAL PRN (10:30)
[2017-08-21] MEDS ORDERED: HYDROcodone/Acetamin 7.5/325 tab ORAL PRN ×2 (10:30)
[2017-08-21] MEDS ORDERED: Milk of Magnesia 30ml Ud ORAL PRN (10:30)
[2017-08-21] MEDS ORDERED: NS Irrig 4000ml IRRIG ONE (11:00)
[2017-08-21] MEDS ORDERED: Succinylcholine 20mg/ml 10ml vial ONE (11:00)
[2017-08-21] MEDS ORDERED: Glycopyrrolate 0.2mg/ml 1ml Vial ONE (11:00)
[2017-08-21] MEDS ORDERED: Zemuron 50mg/5ml Inj IV ONE (11:00)
[2017-08-21] MEDS ORDERED: Propofol 1,000mg/ 100ml btl IV ONE (11:00)
[2017-08-21] MEDS ORDERED: LR 1000ml ONE (11:00)
[2017-08-21] MEDS ORDERED: Sterile Water Irrig 1000ml IRRIG ONE (11:00)
[2017-08-21] MEDS ORDERED: Sodium Chloride 10ml vial INJ ONE (11:00)
[2017-08-21] MEDS ORDERED: Midazolam 2mg/2ml Inj ONE (11:00)
[2017-08-21] MEDS ORDERED: Ketorolac 30mg Inj ONE (11:00)
[2017-08-21] MEDS ORDERED: Neostigmine 1mg/ml 10ml Inj ONE (11:00)
[2017-08-21] MEDS ORDERED: Metoclopramide 10mg/2ml Inj ONE (11:00)
[2017-08-21] MEDS ORDERED: Dexamethasone 4mg/ml vial ONE (11:00)
[2017-08-21] MEDS ORDERED: NS Irrig 1000ml ONE (11:00)
[2017-08-21] MEDS ORDERED: fentaNYL 100 mcg/2 mL IV ONE (11:00)
[2017-08-21] MEDS ORDERED: NeoSporin Gu Irrig 1ml Amp IRRIG ONE (11:27)
[2017-08-21] MEDS ORDERED: ceFAZolin sod 1 GM in D5W 55 ML IV SCH (14:00)
[2017-08-21] MEDS ORDERED: Ketorolac 30mg Inj IV PRN (15:15)
[2017-08-21] MEDS ORDERED: Midazolam 2mg/2ml Inj IVP PRN (15:15)
[2017-08-21] MEDS ORDERED: LR 1000ml 1,000 ML IVLG SCH (15:15)
[2017-08-21] MEDS ORDERED: Hydromorphone 0.5mg/0.5ml inj IVP PRN (15:15)
--- NOTE | 2017-08-21 16:07 | 48 Hour Post Anesthesia Eval ---
Post Anesthesia Evaluation Procedure: L4-S1 microdiskectomy Date of Evaluation: Aug 23, 2017 Time of Evaluation: 09:00 Blood Pressure Systolic: 130 0: 72 Pulse Rate: 70 Respiratory Rate: 16 Temperature (Fahrenheit): 98 O2 Sat by Pulse Oximetry: 99 Airway: patent Nausea: No Vomiting: No Pain Intensity: 0 Hydration Status: adequate Mental Status/LOC: patient returned to baseline Post-Anesthesia Complications: none Follow-up care needed: ready to discharge Jose Raul Arzate M.D. Aug 21, 2017 16:07
[2017-08-21] MEDS: Dexamethasone 4mg/ml vial IVP SCH ×2 (17:42→23:49)
[2017-08-21] MEDS: NS w/KCl 20mEq 1,000 ML IV SCH (17:42)
[2017-08-21] MEDS: Docusate 100mg cap ORAL SCH (17:42)
--- NOTE | 2017-08-21 17:42 | Diagnostic Imaging Report ---
Indication: Back pain, intraoperative Technique: Intraoperative imaging Comparison: none Findings: Intraoperative imaging demonstrates a surgical tool posterior to what is presumably the L5-S1 disc Impression: Intraoperative imaging, as described
[2017-08-21] MEDS ORDERED: Vancomycin 1.5 GM/D5W 250ML IVPB ONE (18:30)
[2017-08-21 18:51] LABS: BASOPHILS % (AUTO) 0.8 % (0.0-2.0); EOSINOPHILS % (AUTO) 0.9 % (0.0-3.0); HEMATOCRIT 34.5 % (37.0-47.0); HEMOGLOBIN 11.3 G/DL (12.0-16.0); MEAN CORPUSCULAR VOLUME 80 FL (80-99); NEUTROPHILS % (AUTO) 66.3 % (45.0-75.0); PLATELET COUNT 507 K/UL (150-450); RED CELL DISTRIBUTION WIDTH 12.8 % (11.6-14.8); WHITE BLOOD COUNT 16.3 K/UL (4.8-10.8)
[2017-08-21 19:05] LABS: ALANINE AMINOTRANSFERASE 19 U/L (12-78); ALBUMIN 2.9 G/DL (3.4-5.0); ALKALINE PHOSPHATASE 92 U/L (46-116); ANION GAP 6 mmol/L (5-15); ASPARTATE AMINO TRANSFERASE 17 U/L (15-37); BILIRUBIN,DIRECT 0.1 MG/DL (0.0-0.3); BILIRUBIN,TOTAL 0.2 MG/DL (0.2-1.0); BLOOD UREA NITROGEN 12 mg/dL (7-18); CALCIUM 9.1 MG/DL (8.5-10.1); CARBON DIOXIDE 27 MMOL/L (21-32); CHLORIDE 105 MMOL/L (98-107); CREATININE 1.2 MG/DL (0.55-1.30); SODIUM 138 MMOL/L (136-145)
[2017-08-21] MEDS: Meropenem 1 GM in NS 55 ML IVPB SCH (20:47)
[2017-08-21] MEDS: Morphine Sulfate 4mg/ml Inj IVP PRN (20:48)
[2017-08-21] MEDS ORDERED: Morphine Sulfate 2mg/ml Inj IVP PRN (22:30)
[2017-08-22] MEDS: Vancomycin 1gm/D5W 275ml IVPB SCH ×6 (01:42→18:02)
--- NOTE | 2017-08-22 01:45 | Operative Note - Dictated ---
DATE OF OPERATION: 08/21/2017 SURGEON: Beny Gilmore MD, Orthopaedic Spine Surgeon OTC CLERK SURGEON: SHON Coles ANESTHESIA: General endotracheal anesthesia. PREOPERATIVE DIAGNOSES: 1. Intractable back pain. 2. Intractable leg pain. 3. Worsening radiculopathy. 4. Weakness. 5. Recurrent Herniated nucleus pulposus, L5-S1. 6. Neural foraminal stenosis, L5-S1. POSTOPERATIVE DIAGNOSES: 1. Intractable back pain. 2. Intractable leg pain. 3. Worsening radiculopathy. 4. Weakness. 5. Herniated nucleus pulposus, L5-S1. 6. Neural foraminal stenosis, L5-S1. PROCEDURES PERFORMED: 1. Left-sided L5-S1 revision microdiscectomy. 2. L5-S1 hemilaminectomy, foraminotomy and medial facetectomy. 3. Irrigation and debridement, dissection through altered and scarred anatomy 4. Use of intraoperative microscope. 5. Supervision and interpretation of intraoperative fluoroscopy. 6. Supervision and interpretation of somatosensory-evoked potential and free running EMG monitoring. EBL: Less than 100 mL. COMPLICATIONS: None. INDICATIONS FOR THE PROCEDURE: Ms. Dalton had her prior lumbar decompression performed by myself and since then, she had complete relief and resolution of her leg pain. During a period of recovery after surgery, she developed a new resurgence of left-sided leg pain and radicular symptoms in an L5 and S1 distribution which was new and distinct from her prior symptoms in terms of severity and character of the symptoms. Postoperative MRI demonstrated a subcutaneous fluid collection as well as a broad-based large recurrent disk herniation at L5-S1. We tentatively treated this with conservative measures. She has had, however, three hospital admission to [facility], where she has had recalcitrant pain and finally after recent hospital admission over this past week, we discussed our options from the standpoint of definitive management in the form of surgery. Repeat MRI again demonstrated with recurrent disk herniation at L5-S1 and she presents today for resection of the disk herniation fragment as well as exploration of her prior wound. We had a long discussion with the patient regarding the risks, alternatives, and benefits of surgery. Our description of the risks included a discussion in person as well as a signed consent which detailed all pertinent risks and the procedure itself. Briefly, our discussion included but was not limited to infection, bleeding, pseudarthrosis, spinal cord injury, neurovascular injury, dural tear, CSF leak, neuropathy, paralysis, permanent weakness/drop foot, paresthesias blindness, palsy and weakness. The patient understood there may be a need for revision surgery or additional procedures. Approach related complications including dysphonia, dysphagia, blindness, permanent vocal cord and neural injury, hematoma, swallowing and breathing difficulty. Medical complications including liver, kidney, shock, and cardiopulmonary failure. Anesthesia complications including , swelling. Damage to the musculature, larynx (voice injury or loss),esophagus (throat), trachea, blood vessels and muscles (muscular sprain) and lungs (pneumothorax) during this surgical procedure. Injury to deeper structures may be temporary or permanent. The patient understood these and elected to proceed. A written and verbal consent was given. We discussed the pros and cons of all the alternatives. We discussed the uncertainties associated with the decision. Afterwards I assessed the patients understanding and explored their preferences. All questions were answered and no guarantees were given. Medical clearance was obtained prior to surgery. OPERATIVE FINDINGS: Two free sequestered broad-based disc herniations at L5-S1 , which encroached on the thecal sac and neural foraminal elements therein. This disc was acute in nature and not calcified. It was mobile and free floating and resected easily. There was also a superfascial fluid collection of clear serous fluid in the subcutaneous tissues which did not communicate with the subfascial lamina or thecal sac. DESCRIPTION OF PROCEDURE: Under the benefit of general endotracheal anesthesia and with the assistance of the entire operative team, the patient was moved from the [facility] onto the operative table in the prone position on a Julian frame. The head was secured and positioned appropriately. Bilateral arms were secured with Gel pads and foam and all bony prominences were padded. The bilateral lower extremity SCD and BRENDA hose were placed for DVT prophylaxis. A surgical timeout was called which corroborated our planned procedure. Preoperative Antibiotics were administered within 30 minutes of the incision for prophylaxis. Decadron was given for preoperative steroids. Using lateral radiography, the operative levels were delineated. An incision was marked based on our interpretation of lateral radiography and afterwards the body was prepped and draped in the usual sterile manner. The family was notified that we were ready to commence surgery and were called in the waiting room hourly for updates. An incision was based on our lateral fluoroscopic image to center the incision at the L5-S1 interspace. The wound was prepped and draped in the usual sterile fashion. Using a scalpel a midline incision was taken down through the skin and subcutaneous tissues until the overlying hemilamina of L5-S1 were visualized. Next, using meticulous hemostasis, hemilaminotomies were dissected and retractors were placed. Using a Ervin dental we confirmed placement at the L5-S1 interspace. We next turned our attention to our decompression. After the skin incision I noted a subcutaneous and superfascial fluid collection of clear serous fluid in the subcutaneous tissues which did not communicate with the subfascial lamina or thecal sac. Cultures were obtained x 3. A standard hemilaminectomy foraminotomy medial facetectomy was performed at the left L5 lamina in standard fashion using a Midas-Matt type AM8 drill bit, straight and angled curettage, and Kerrison 4 rongeurs until the lateral thecal sac margin and traversing nerve root was visualized. All remainders of the ligamentum flavum and lateral bony margins were resected in total with angled curettage and Kerrison 4 rongeurs until the lateral thecal sac margin and traversing nerve root was visualized and decompressed. We next turned our attention toward our L5-S1 microdiscectomy on the left side. A Renton 4 was used to gently mobilize the thecal sac medially and this was held retracted with a bayonetted nerve root retractor. It was at this point that we noted a large broad-based disc protrusion with encroachment dorsally on the thecal sac neural foraminal contents. The disc was paracentral but more fragments were removed from the subarticular and lateral recess margin specifically two very large mobile sequestered fragments. A bayonet and nerve root retractor was then placed carefully to retract the thecal sac and a discectomy was performed using a combination of a long handled 15 blade scalpel, downgoing and straight pituitaries and downgoing curettage. Afterward the disc space was irrigated twice with 20 mL of antibiotic-impregnated saline. All loose and free-floating disc fragments were carefully resected with a narrow pituitary. Cultures were obtained of the deep enviornment as well x 3. Having been satisfied with our decompression after our discectomy of all neural elements we next turned our attention to our neural foraminoplasty/foraminotomy. This was performed using kerrison rongeurs and pituitaries. Afterwards hemostasis was obtained with 60 mL of antibiotic-impregnated saline followed by FloSeal and Gelfoam. After sponge and needle count were found to be correct, next we turned our attention to closure. Closure consisted of 1-0 Vicryl in standard interrupted fashion. Zosyn was placed deep to the fascia and superficial to the fascia for Antibiotic prophylaxis. Skin closure was performed with 2-0 Vicryl in interrupted fashion followed by a running Monocryl for the skin. Final dressings consisted of Dermabond for the superficial skin, Telfa and Tegaderm. The patient tolerated the procedure well. The patient was extubated after the conclusion of surgery without incident. We discussed the findings of the surgery with the family upon completion of the case. At this point the patient will be transferred to the spine floor for further observation. Beny Gilmore M.D. DR: KIA JOB#: [id number] CC: LARY
[2017-08-22] MEDS: Morphine Sulfate 4mg/ml Inj IVP PRN ×6 (02:25→21:06)
[2017-08-22] MEDS: NS w/KCl 20mEq 1,000 ML IV SCH (03:00)
[2017-08-22 04:00] VITALS: BP 139/74
[2017-08-22] MEDS: Meropenem 1 GM in NS 55 ML IVPB SCH ×3 (05:46→21:06)
[2017-08-22] MEDS: Dexamethasone 4mg/ml vial IVP SCH ×2 (05:46→13:56)
[2017-08-22 08:30] VITALS: BP 146/84
[2017-08-22] MEDS: Docusate 100mg cap ORAL SCH ×2 (09:43→18:02)
[2017-08-22 12:35] VITALS: BP 141/67
[2017-08-22 16:00] VITALS: BP 141/79
--- NOTE | 2017-08-22 17:33 | Infectious Diseases Prog Note ---
Assessment/Plan Assessment/Plan Full consult dictated: A) 1) hx of lumbar back wound infection/?abscess, + staph aureus infection in d/ w Dr. Gilmore 2) patient s/p 5 weeks vancomycin and meropenem, patient seeing outside ID MD , Dr. Johnson per patient 3) s/p spinal surgery on 08/21 - operative report noted 4) radiculopathy, back pain, weakness 5) leukocytosis noted 6) obesity P) 1) continue vancomycin and meropenem - suspect patient being treated as presumptive lumbar spine discitis/osteomyelitis 2) check records from outside hospital 3) check f/u labs and surgical culture 4) patient to f/u with prior ID MD to finish abx course, standard is at least 6-8 weeks if treating discitis 5) d/w Dr. Gilmore and Dr. Herrera and patient 6) thank you Subjective Allergies: Coded Allergies: GUAIFENESIN (Verified Allergy, Severe, Hives, 08/20/17) Objective Vital Signs Last 24 Hour Vital Signs Date Time Temp Pulse Resp B/P (MAP) Pulse Ox O2 Delivery O2 Flow Rate FiO2 08/22/17 16:00 98.5 91 18 141/79 98 Room Air 98.5 08/22/17 14:26 98.5 08/22/17 13:56 98.1 08/22/17 12:35 98.1 83 18 141/67 98 Room Air 98.1 08/22/17 09:42 97.4 08/22/17 08:30 98.4 82 20 146/84 97 Room Air 98.4 08/22/17 04:00 97.4 76 20 139/74 96 Room Air 97.4 08/21/17 23:39 98.1 84 20 133/69 97 Room Air 98.1 08/21/17 20:00 97.7 99 20 142/90 97 Room Air 97.7 Height (Feet): 5 Height (Inches): 2.99 Weight (Pounds): 321 Microbiology Date/Time Source Procedure Growth Status 08/21/17 12:35 Wound Gram Stain - Final Resulted 08/21/17 12:35 Wound Aerobic Culture - Preliminary NO GROWTH Resulted 08/21/17 12:11 Wound Gram Stain - Final Resulted 08/21/17 12:11 Wound Aerobic Culture - Preliminary NO GROWTH Resulted 08/21/17 11:50 Wound Gram Stain - Final Resulted 08/21/17 11:50 Wound Aerobic Culture - Preliminary NO GROWTH Resulted Laboratory Tests Test 08/21/17 18:30 White Blood Count 16.3 K/UL (4.8-10.8) H Red Blood Count 4.30 M/UL (4.20-5.40) Hemoglobin 11.3 G/DL (12.0-16.0) L Hematocrit 34.5 % (37.0-47.0) L Mean Corpuscular Volume 80 FL (80-99) Mean Corpuscular Hemoglobin 26.2 PG (27.0-31.0) L Mean Corpuscular Hemoglobin Concent 32.7 G/DL (32.0-36.0) Red Cell Distribution Width 12.8 % (11.6-14.8) Platelet Count 507 K/UL (150-450) H Mean Platelet Volume 6.2 FL (6.5-10.1) L Neutrophils (%) (Auto) 66.3 % (45.0-75.0) Lymphocytes (%) (Auto) 26.0 % (20.0-45.0) Monocytes (%) (Auto) 6.0 % (1.0-10.0) Eosinophils (%) (Auto) 0.9 % (0.0-3.0) Basophils (%) (Auto) 0.8 % (0.0-2.0) Sodium Level 138 MMOL/L (136-145) Potassium Level 4.0 MMOL/L (3.5-5.1) Chloride Level 105 MMOL/L (98-107) Carbon Dioxide Level 27 MMOL/L (21-32) Anion Gap 6 mmol/L (5-15) Blood Urea Nitrogen 12 mg/dL (7-18) Creatinine 1.2 MG/DL (0.55-1.30) Estimat Glomerular Filtration Rate > 60 mL/min (>60) Glucose Level 142 MG/DL (74-106) H Calcium Level 9.1 MG/DL (8.5-10.1) Total Bilirubin 0.2 MG/DL (0.2-1.0) Direct Bilirubin 0.1 MG/DL (0.0-0.3) Aspartate Amino Transf (AST/SGOT) 17 U/L (15-37) Alanine Aminotransferase (ALT/SGPT) 19 U/L (12-78) Alkaline Phosphatase 92 U/L (46-116) Total Protein 7.1 G/DL (6.4-8.2) Albumin 2.9 G/DL (3.4-5.0) L Current Medications Medications (Trade) Dose Ordered Sig/Fabricio Route PRN Reason Start Time Stop Time Status Last Admin Dose Admin Acetaminophen (Tylenol) 650 mg Q4H PRN ORAL headache or temp>101 08/21/17 10:30 09/20/17 10:29 Acetaminophen/ Hydrocodone Bitart ([place] 5/325) 1 tab Q3H PRN ORAL pain score 1-3 08/21/17 10:30 08/28/17 10:29 Acetaminophen/ Hydrocodone Bitart ([place] 7.5/325) 1 tab Q3H PRN ORAL pain score 4-6 08/21/17 10:30 08/28/17 10:29 Acetaminophen/ Hydrocodone Bitart ([place] 7.5/325) 2 tab Q3H PRN ORAL pain scale 7-10 08/21/17 10:30 08/28/17 10:29 Carisoprodol (Soma) 350 mg TIDPRN PRN ORAL MUSCLE SPASM 08/21/17 10:30 09/20/17 10:29 Cetylpyridinium Chloride (Cepacol) 1 lozg Q2H PRN SHARIFA To Patient Comfort/SORE THROAT 08/21/17 10:30 09/20/17 10:29 08/21/17 17:42 Chlorhexidine Gluconate (Phyllis-Hex 2%) 1 applic DAILY@2000 TOPIC 08/22/17 20:00 09/21/17 19:59 Docusate Sodium (Colace) 100 mg TWICE A DAY ORAL 08/21/17 18:00 09/20/17 17:59 08/22/17 09:43 Hydromorphone HCl (Dilaudid) 2 mg HSPRN PRN SUBQ IF PAIN CREATES INSOMNIA 08/21/17 10:30 08/28/17 10:29 Magnesium Hydroxide (Mom) 30 ml QIDPRN PRN ORAL Constipation 08/21/17 10:30 09/20/17 10:29 Meropenem 1 gm/ Sodium Chloride 55 ml @ 110 mls/hr Q8HR IVPB 08/21/17 20:00 08/26/17 19:59 08/22/17 13:56 Morphine Sulfate (Morphine Sulfate) 2 mg Q4H PRN IVP Mild Pain (Pain Scale 1-3) 08/21/17 22:30 08/28/17 22:29 Morphine Sulfate (Morphine Sulfate) 4 mg Q3H PRN IVP Severe Pain (Pain Scale 7-10) 08/21/17 22:30 08/28/17 22:29 08/22/17 13:56 Morphine Sulfate (Morphine Sulfate) 4 mg Q4H PRN SUBQ Moderate Pain (Pain Scale 4-6) 08/21/17 10:30 08/28/17 10:29 Naloxone HCl (Narcan) 0.1 mg PRN PRN IVP RR<12/min, pt unarousable 08/21/17 10:30 09/20/17 10:29 Ondansetron HCl (Zofran) 4 mg Q6H PRN IVP Nausea & Vomiting 08/21/17 10:30 09/20/17 10:29 Phenol/Menthol (Chloraseptic) 1 spray Q3H PRN ORAL To Patient Comfort/SORE THROAT 08/21/17 10:30 09/20/17 10:29 Prochlorperazine (Compazine) 10 mg Q6H PRN IVP Nausea & Vomiting 08/21/17 10:30 09/20/17 10:29 Temazepam (Restoril) 15 mg HSPRN PRN ORAL Insomnia 08/21/17 10:30 08/28/17 10:29 08/21/17 23:49 Vancomycin HCl (Vanco rx to dose) 1 ea DAILY PRN MISC Per rx protocol 08/21/17 16:30 09/20/17 16:29 Vancomycin HCl 1 gm/Dextrose 275 ml @ 183.708 mls/hr Q8H IVPB 08/22/17 02:00 08/27/17 01:59 08/22/17 09:43 ADELFO CALLOWAY 10, 2018 17:33
[2017-08-22 18:10] LABS: HEMATOCRIT 33.9 % (37.0-47.0); HEMOGLOBIN 11.5 G/DL (12.0-16.0); MEAN CORPUSCULAR VOLUME 80 FL (80-99); PLATELET COUNT 526 K/UL (150-450); RED BLOOD COUNT 4.26 M/UL (4.20-5.40); RED CELL DISTRIBUTION WIDTH 12.8 % (11.6-14.8)
[2017-08-22 18:21] LABS: WHITE BLOOD COUNT 29.9 K/UL (4.8-10.8)
[2017-08-22 20:00] VITALS: BP 156/85
[2017-08-22] MEDS ORDERED: Dyna-Hex 2% Top Sol 2oz TOPIC SCH (20:00)
--- NOTE | 2017-08-22 21:14 | General Progress Note ---
Assessment/Plan Problem List: (1) HNP (herniated nucleus pulposus), lumbar ICD Codes: M51.26 - Other intervertebral disc displacement, lumbar region SNOMED: 185047714 (2) Lumbar radiculopathy ICD Codes: M54.16 - Radiculopathy, lumbar region SNOMED: 481619240 (3) Concern for wound infection, possible abscess Assessment & Plan: Per Dr. Gilmore, likely superficial serous fluid (4) Obesity ICD Codes: E66.9 - Obesity, unspecified SNOMED: 183142528, 982047529 Status: stable Assessment/Plan Appreciate surgery rec's s/p lumbar L45 L5S1 revision microdiscectomy exploration of wound, irrigation and debridement on 08/21/17 Drain per surgery ID consulted Cont vanco and meropenem per ID Post operative recommendations include: - encourage mobilization/ambulation - encourage incentive spirometry to optimize pulmonary hygiene - DVT/GI prophylaxis as appropriate - ctm CBC and hemodynamics - ctm electrolytes, adjust/replete prn - PT/OT - pain control, supportive care, bowel regimen FULL CODE D/w pt/family, RN, SW/CM, surgery, ID regarding mgmt and dispo Subjective Date patient seen: Aug 22, 2017 Time patient seen: 12:00 ROS Limited/Unobtainable: No Constitutional: Reports: no symptoms HEENT: Reports: no symptoms Cardiovascular: Reports: no symptoms Respiratory: Reports: no symptoms Gastrointestinal/Abdominal: Reports: no symptoms Genitourinary: Reports: no symptoms Neurologic/Psychiatric: Reports: no symptoms Endocrine: Reports: no symptoms Hematologic/Lymphatic: Reports: no symptoms Allergies: Coded Allergies: GUAIFENESIN (Verified Allergy, Severe, Hives, 08/20/17) All Systems: reviewed and negative except above Subjective No acute o/n events Afebrile, VSS On vanco and meropenem per ID s/p Lumbar L45 L5S1 revision microdiscectomy exploration of wound, irrigation and debridement POD#1 Pain controlled. Denies f/c, n/v, d/c, chest pain, SOB Objective Last 24 Hour Vital Signs Date Time Temp Pulse Resp B/P (MAP) Pulse Ox O2 Delivery O2 Flow Rate FiO2 08/22/17 20:00 98.5 79 18 156/85 98 Room Air 98.5 08/22/17 18:48 98.5 08/22/17 18:02 98.5 08/22/17 16:00 98.5 91 18 141/79 98 Room Air 98.5 08/22/17 13:56 98.1 08/22/17 12:35 98.1 83 18 141/67 98 Room Air 98.1 08/22/17 09:42 97.4 08/22/17 08:30 98.4 82 20 146/84 97 Room Air 98.4 08/22/17 04:00 97.4 76 20 139/74 96 Room Air 97.4 08/21/17 23:39 98.1 84 20 133/69 97 Room Air 98.1 Intake and Output 08/21/17 08/22/17 19:00 07:00 Intake Total 700 ml 675 ml Output Total 335 ml 60 ml Balance 365 ml 615 ml Intake Oral 120 ml IV Total 700 ml 555 ml Output Urine Total 300 ml Drainage Total 35 ml 60 ml # Voids 1 3 Laboratory Tests 08/22/17 17:14: White Blood Count 29.9#*H, Red Blood Count 4.26, Hemoglobin 11.5L, Hematocrit 33.9L, Mean Corpuscular Volume 80, Mean Corpuscular Hemoglobin 27.0, Mean Corpuscular Hemoglobin Concent 33.9, Red Cell Distribution Width 12.8, Platelet Count 526H, Mean Platelet Volume 6.1L, Neutrophils (%) (Auto) , Lymphocytes (%) (Auto) , Monocytes (%) (Auto) , Eosinophils (%) (Auto) , Basophils (%) (Auto) , Differential Total Cells Counted 100, Neutrophils % (Manual) 84H, Lymphocytes % (Manual) 10L, Monocytes % (Manual) 4, Eosinophils % (Manual) 0, Basophils % ( Manual) 0, Band Neutrophils 2, Platelet Estimate IncreasedH, Platelet Morphology Normal, Hypochromasia 1+, Anisocytosis 1+, Vancomycin Level Trough 9.9 Height (Feet): 5 Height (Inches): 2.99 Weight (Pounds): 321 Objective General: alert, cooperative, no distress, appears stated age, obese Head: normocephalic, without obvious abnormality, atraumatic Eyes: conjunctivae/corneas clear. PERRL, EOM's intact Throat: lips, mucosa, and tongue normal. MMM Neck: supple, symmetrical, trachea midline, and no JVD Lungs: clear to auscultation bilaterally Heart: regular rate and rhythm, S1, S2 normal, no murmur, click, rub or gallop Abdomen: soft, non-tender, non-distended, bowel sounds normal Extremities: extremities normal, atraumatic, no cyanosis or edema Pulses: 2+ and symmetric Skin: dressing c/d/i, +drain c/d/i Neurologic: grossly normal, no focal deficits Javier Terrell M.D. Aug 22, 2017 21:14
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
[2017-08-23 00:10] VITALS: BP 134/73
[2017-08-23] MEDS: Vancomycin 1250mg/D5W 250ml IVPB SCH ×2 (01:36→10:16)
[2017-08-23] MEDS: Morphine Sulfate 4mg/ml Inj IVP PRN ×3 (01:37→12:04)
[2017-08-23 04:00] VITALS: BP 140/75
[2017-08-23] MEDS: Meropenem 1 GM in NS 55 ML IVPB SCH (05:07)
[2017-08-23 08:00] VITALS: BP 157/87
[2017-08-23] MEDS: Docusate 100mg cap ORAL SCH (08:15)
[2017-08-23 08:29] LABS: HEMATOCRIT 33.2 % (37.0-47.0); MEAN CORPUSCULAR VOLUME 81 FL (80-99); PLATELET COUNT 490 K/UL (150-450); RED BLOOD COUNT 4.12 M/UL (4.20-5.40)
[2017-08-23 08:32] LABS: WHITE BLOOD COUNT 27.6 K/UL (4.8-10.8)
[2017-08-23 09:10] LABS: ANION GAP 8 mmol/L (5-15); BLOOD UREA NITROGEN 12 mg/dL (7-18); CARBON DIOXIDE 26 MMOL/L (21-32); CHLORIDE 105 MMOL/L (98-107); CREATININE 0.8 MG/DL (0.55-1.30); POTASSIUM 4.1 MMOL/L (3.5-5.1); SODIUM 139 MMOL/L (136-145)
[2017-08-23 11:59] VITALS: BP 156/89
--- NOTE | 2017-08-23 12:40 | General Progress Note ---
Assessment/Plan Problem List: (1) HNP (herniated nucleus pulposus), lumbar ICD Codes: M51.26 - Other intervertebral disc displacement, lumbar region SNOMED: 731068359 (2) Lumbar radiculopathy ICD Codes: M54.16 - Radiculopathy, lumbar region SNOMED: 335506005 (3) Concern for wound infection, possible abscess Assessment & Plan: Per Dr. Gilmore, likely superficial serous fluid (4) Obesity ICD Codes: E66.9 - Obesity, unspecified SNOMED: 819423738, [id number] Status: stable Assessment/Plan Appreciate surgery rec's s/p lumbar L45 L5S1 revision microdiscectomy exploration of wound, irrigation and debridement on 08/21/17 Drain per surgery ID consulted Cont vanco and meropenem per ID Post operative recommendations include: - encourage mobilization/ambulation - encourage incentive spirometry to optimize pulmonary hygiene - DVT/GI prophylaxis as appropriate - ctm CBC and hemodynamics - ctm electrolytes, adjust/replete prn - PT/OT - pain control, supportive care, bowel regimen Pt is already set up with home health for IV antibiotics. Pt states she will call to resume services at home Medically stable for d/c home today FULL CODE D/w pt/family, RN, SW/CM, surgery, ID regarding mgmt and dispo Subjective Date patient seen: Sep 23, 2017 Time patient seen: 11:00 ROS Limited/Unobtainable: No Constitutional: Reports: no symptoms HEENT: Reports: no symptoms Cardiovascular: Reports: no symptoms Respiratory: Reports: no symptoms Gastrointestinal/Abdominal: Reports: no symptoms Genitourinary: Reports: no symptoms Neurologic/Psychiatric: Reports: no symptoms Endocrine: Reports: no symptoms Hematologic/Lymphatic: Reports: no symptoms Allergies: Coded Allergies: GUAIFENESIN (Verified Allergy, Severe, Hives, 08/20/17) Subjective No acute o/n events Afebrile, VSS On vanco and meropenem per ID s/p Lumbar L45 L5S1 revision microdiscectomy exploration of wound, irrigation and debridement POD#2 Pain controlled. Denies f/c, n/v, d/c, chest pain, SOB Objective Last 24 Hour Vital Signs Date Time Temp Pulse Resp B/P (MAP) Pulse Ox O2 Delivery O2 Flow Rate FiO2 08/23/17 11:59 97.4 63 18 156/89 100 Room Air 97.4 08/23/17 08:00 97.9 69 18 157/87 100 Room Air 97.9 08/23/17 04:00 97.8 68 18 140/75 98 Room Air 97.8 08/23/17 00:10 98.3 81 18 134/73 98 Room Air 98.3 08/22/17 20:00 98.5 79 18 156/85 98 Room Air 98.5 08/22/17 18:48 98.5 08/22/17 18:02 98.5 08/22/17 16:00 98.5 91 18 141/79 98 Room Air 98.5 08/22/17 13:56 98.1 Intake and Output 08/22/17 08/23/17 19:00 07:00 Intake Total 400 ml 350 ml Output Total 75 ml Balance 400 ml 275 ml Intake Oral 400 ml 350 ml Drainage Total 75 ml # Voids 3 4 Laboratory Tests 08/22/17 17:14: White Blood Count 29.9#*H, Red Blood Count 4.26, Hemoglobin 11.5L, Hematocrit 33.9L, Mean Corpuscular Volume 80, Mean Corpuscular Hemoglobin 27.0, Mean Corpuscular Hemoglobin Concent 33.9, Red Cell Distribution Width 12.8, Platelet Count 526H, Mean Platelet Volume 6.1L, Neutrophils (%) (Auto) , Lymphocytes (%) (Auto) , Monocytes (%) (Auto) , Eosinophils (%) (Auto) , Basophils (%) (Auto) , Differential Total Cells Counted 100, Neutrophils % (Manual) 84H, Lymphocytes % (Manual) 10L, Monocytes % (Manual) 4, Eosinophils % (Manual) 0, Basophils % ( Manual) 0, Band Neutrophils 2, Platelet Estimate IncreasedH, Platelet Morphology Normal, Hypochromasia 1+, Anisocytosis 1+, Vancomycin Level Trough 9.9 08/23/17 07:20: White Blood Count 27.6*H, Red Blood Count 4.12L, Hemoglobin 11.0L, Hematocrit 33.2L, Mean Corpuscular Volume 81, Mean Corpuscular Hemoglobin 26.6L, Mean Corpuscular Hemoglobin Concent 33.0, Red Cell Distribution Width 13.0, Platelet Count 490H, Mean Platelet Volume 6.4L, Neutrophils (%) (Auto) , Lymphocytes (%) (Auto) , Monocytes (%) (Auto) , Eosinophils (%) (Auto) , Basophils (%) (Auto) , Neutrophils % (Manual) [Pending], Lymphocytes % (Manual) [Pending], Platelet Estimate [Pending], Platelet Morphology [Pending], Sodium Level 139, Potassium Level 4.1, Chloride Level 105, Carbon Dioxide Level 26, Anion Gap 8, Blood Urea Nitrogen 12, Creatinine 0.8, Estimat Glomerular Filtration Rate > 60, Glucose Level 114H, Calcium Level 9.0 Height (Feet): 5 Height (Inches): 2.99 Weight (Pounds): 321 Objective General: alert, cooperative, no distress, appears stated age, obese Head: normocephalic, without obvious abnormality, atraumatic Eyes: conjunctivae/corneas clear. PERRL, EOM's intact Throat: lips, mucosa, and tongue normal. MMM Neck: supple, symmetrical, trachea midline, and no JVD Lungs: clear to auscultation bilaterally Heart: regular rate and rhythm, S1, S2 normal, no murmur, click, rub or gallop Abdomen: soft, non-tender, non-distended, bowel sounds normal Extremities: extremities normal, atraumatic, no cyanosis or edema Pulses: 2+ and symmetric Skin: dressing c/d/i, +drain c/d/i Neurologic: grossly normal, no focal deficits Javier Terrell M.D. Aug 23, 2017 12:40
--- NOTE | 2017-08-24 12:46 | Discharge Summary ---
Discharge Summary Hospital Course Date of Admission Aug 21, 2017 at 09:06 Date of Discharge Aug 23, 2017 at 13:00 Admitting Diagnosis recurrent disc herniation L5-S1 and concern for wound infection Reason for Hospitalization: Judy was admitted for elective surgery HPI Patty Dalton is a 32 year old female who was admitted on Aug 21, 2017 at 09: 06 for recurrent disc herniation and concern for wound infection Consultations Javier Terrell M.D. Aug 23, 2017 12:40 Procedures s/p 08/19/[address] Gilmore 1. Left-sided L5-S1 revision microdiscectomy. 2. L5-S1 hemilaminectomy, foraminotomy and medial facetectomy. 3. Irrigation and debridement, dissection through altered and scarred anatomy 4. Use of intraoperative microscope. 5. Supervision and interpretation of intraoperative fluoroscopy. 6. Supervision and interpretation of somatosensory-evoked potential and free running EMG monitoring. Hospital Course seen and evaluated by surgeon per surgeon drainage likely superficial serous fluid s/p lumbar L45 L5S1 revision microdiscectomy exploration of wound, irrigation and debridement on 08/21/17 Abx, ID follows wound cx + SCON Patient had PICC line, intact Leukocytosis, afebrile, 2 Hemovac with serosanguineous drainage, deceasing output neurovascular stable dressing intact worked with PT, ambulated pain management, controlled with current regimen fall precautions maintained IS while in the bed, encouraged to use DVT GI prophylaxis Bowel regimen supportive care tolerated diet voided stable for dc home with [facility] for IV abx -surgeon cleared for discharge outpt fup with surgeon FINAL DIAGNOSIS HNP (herniated nucleus pulposus), lumbar, L5-S1 Lumbar radiculopathy Neural foraminal stenosis, L5-S1. Concern for wound infection, possible abscess s/p lumbar L45 L5S1 revision microdiscectomy exploration of wound, irrigation and debridement on 08/21/17 Obesity Discharge Medications Continued Medications: Baclofen (Baclofen) 20 Mg Tablet 20 MG ORAL THREE TIMES A DAY, TAB Hydrocodone Bit/Acetaminophen 5-325* ([place] 5-325 Tablet*) 1 Each Tablet 1 TAB ORAL Q4H PRN for For Pain, TAB Morphine Sulfate* (Ms Contin*) 30 Mg Tablet.er 15 MG ORAL Q8HR PRN for For Pain, #30 TAB 0 Refills Vancomycin Hcl/D5w (Vancomycin-D5w 1 G/250 Ml) 1 Gm/250 Ml Plast..bag 1 GM IVPB Q8HR, BAG Discharge Condition Upon Discharge: stable Discharge Disposition Patient was discharged to Home with [facility] Discharge Diagnoses: Discharge Instructions Discharge Instructions Special Instructions I have been assigned to complete a D/C Summary on this account. I was not involved in the patient management Terese Lea NP ([place]) Aug 24, 2017 12:46
== END 2017-08-23 13:00 | disposition home health service (06) | DRG 519 ==
LOC: SDSOVERFLO 09:06 → 3E 16:10
PROC: 0SB40ZZ Excision of Lumbosacral Disc, Open Approach (ICD-10-PCS; principal; 2017-08-21 10:30)
PROC: 01NB0ZZ Release Lumbar Nerve, Open Approach (ICD-10-PCS; principal; 2017-08-21 10:30)
DX: M51.17 Intervertebral disc disorders with radiculopathy, lumbosacral region (principal); L02.818 Cutaneous abscess of other sites; Z68.43 Body mass index [BMI] 50.0-59.9, adult; E66.9 Obesity, unspecified; M48.07 Spinal stenosis, lumbosacral region; Z88.8 Allergy status to other drugs, medicaments and biological substances; B95.61 Methicillin susceptible Staphylococcus aureus infection as the cause of diseases classified elsewhere
CPT/HCPCS: 36415; 72020; 76001; 80048; 80076; 80202; 81025; 85007; 85025; 86850; 86870; 86900; 86901; 87070; 87075; 87081; 87205; 94003; 94150; J2250; J2405; J2710; J2765